=== PATIENT | female | born 1995 | race African-American/Black ===

== ENCOUNTER 2017-01-08 23:22 | Emergency (ER) | payer SELFPAY ==
[2017-01-09] MEDS ORDERED: LIDOCAINE 1% INJ-PF (10 MG/ML) 30 ML SDV INJ ONE (00:31)
[2017-01-09] MEDS ORDERED: CLINDAMYCIN HCL 150 MG CAPSULE PO ONE (00:54)
[2017-01-09] MEDS ORDERED: HYDROCODONE/ACETAMINOPHEN 5-325 MG (6 TAB/ER DISP) PO PRN (00:54)
--- NOTE | 2017-01-09 00:55 | ER Document Report ---
ED Oral Problem - General Chief Complaint: Mouth Problem Stated Complaint: MOUTH PAIN Time Seen by Provider: 01/09/17 00:09 Mode of Arrival: Ambulatory Information source: Patient Notes: 21-year-old female presented to ED for complaint of swelling not to the right wasted tooth for the last 3 days. She denies any cavities never had pain in this area before. She states these teeth just started coming in about a year ago and it feels like it is making all of her teeth removed. She states she has slight swelling to the right side of her face. TRAVEL OUTSIDE OF THE [place] IN LAST 30 DAYS: No - HPI Patient complains to provider of: Swelling of jaw, Toothache Onset: Other - 3 days Onset: Gradual Quality of pain: Achy, Sharp Severity: Moderate Pain Level: 4 Swollen jaw/face: Mild Associated symptoms: Jaw pain, Toothache Worsened by: Cold Relieved by: Nothing Similar symptoms previously: No Recently seen / treated by doctor/dentist: No - Related Data Allergies/Adverse Reactions: No Known Allergies Allergy (Verified 01/09/17 00:36) Past Medical History - General Information source: Patient - Social History Smoking Status: Never Smoker Cigarette use (# per day): No Chew tobacco use (# tins/day): No Smoking Education Provided: No Frequency of alcohol use: None Drug Abuse: None 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 denies: CAD, COPD, CVA, DM, Hyperlipidemia, Hypertension, Malignancy, Thyroid Disfunction Patient has suicidal ideation: No Patient has homicidal ideation: No - Past Medical History Cardiac Medical History: Reports: None Pulmonary Medical History: Reports: None EENT Medical History: Reports: None Neurological Medical History: Reports: None Endocrine Medical History: Reports: None Renal/ Medical History: Reports: None Malignancy Medical History: Reports: None GI Medical History: Reports: None Musculoskeltal Medical History: Reports None Skin Medical History: Reports None Psychiatric Medical History: Reports: None Traumatic Medical History: Reports: None Infectious Medical History: Reports: None Surgical Hx: Negative - Immunizations Immunizations up to date: Yes Hx Diphtheria, Pertussis, Tetanus Vaccination: Yes Review of Systems - Review of Systems Constitutional: No symptoms reported EENT: Mouth pain, Dental problem Cardiovascular: No symptoms reported Respiratory: No symptoms reported Gastrointestinal: No symptoms reported Genitourinary: No symptoms reported Female Genitourinary: No symptoms reported Musculoskeletal: No symptoms reported Skin: No symptoms reported Hematologic/Lymphatic: No symptoms reported Neurological/Psychological: No symptoms reported -: Yes All other systems reviewed and negative Physical Exam - Vital signs Vitals: Temp Pulse Resp BP Pulse Ox 98.4 F 83 18 120/71 95 01/08/17 23:41 01/08/17 23:41 01/08/17 23:41 01/08/17 23:41 01/08/17 23:41 Interpretation: Normal - General General appearance: Appears well, Alert - HEENT Head: Normocephalic, Atraumatic Eyes: Normal Pupils: PERRL Ears: Normal External canal: Normal Tympanic membrane: Normal Sinus: Normal Nasal: Normal Mouth/Lips: No: Caries Mucous membranes: Normal Teeth diagram: 1 - Small dental abscess Pharynx: Normal Neck: Normal - Respiratory Respiratory status: No respiratory distress Chest status: Nontender Breath sounds: Normal Chest palpation: Normal - Cardiovascular Rhythm: Regular Heart sounds: Normal auscultation Murmur: No - Abdominal Inspection: Normal Distension: No distension Bowel sounds: Normal Tenderness: Nontender Organomegaly: No organomegaly - Back Back: Normal, Nontender - Extremities General upper extremity: Normal inspection, Nontender, Normal color, Normal ROM , Normal temperature General lower extremity: Normal inspection, Nontender, Normal color, Normal ROM , Normal temperature, Normal weight bearing. No: Crystal's sign - Neurological Neuro grossly intact: Yes Cognition: Normal Orientation: AAOx4 Young Harris Coma Scale Eye Opening: Spontaneous Young Harris Coma Scale Verbal: Oriented [place] Coma Scale Motor: Obeys Commands Young Harris Coma Scale Total: 15 Speech: Normal Motor strength normal: LUE, RUE, LLE, RLE Sensory: Normal - Psychological Associated symptoms: Normal affect, Normal mood - Skin Skin Temperature: Warm Skin Moisture: Dry Skin Color: Normal Course - Re-evaluation Re-evalutation: 01/09/17 02:15 Small dental abscess I&D with an 18-gauge needle. Moderate amount of purulent fluid returned. Patient was given clindamycin in the emergency room and discharged home with prescription for clindamycin. Patient also given a Torrey dispense pack for the discomfort. - Vital Signs Vital signs: Temp Pulse Resp BP Pulse Ox 98.4 F 86 18 127/80 H 95 01/09/17 01:03 01/09/17 01:03 01/09/17 01:03 01/09/17 01:03 01/09/17 01:03 Procedures - Incision and Drainage Right tooth #1 abscess Type: Simple Anesthetic type: 1% Lidocaine mL's of anesthetic: 3 Blade size: Other Incision Method: Incision made with needle Amount/type of drainage: Moderate amount of purulent drainage Discharge - Discharge Clinical Impression: right dental abscess Condition: Stable Disposition: HOME, SELF-CARE Additional Instructions: TOOTHACHE: Your pain is due to dental decay. The tooth must be repaired in order for you to feel better. You will, therefore, be referred to a dentist. We do not have dentists on the staff at [facility]. Severe swelling or drainage around a tooth usually means a dental abscess. This also requires evaluation and treatment by the dentist, but antibiotics may be prescribed while awaiting dental treatment. You should be rechecked immediately if you develop major swelling of the face, increasing pain, a lump in the jaw or gums, headache, difficulty swallowing, or fever. ORAL NARCOTIC MEDICATION: You have been given a norco dispense pack for pain control. This medication is a narcotic. It's best taken with food, as nausea can result if taken on an empty stomach. Don't operate machinery or drive within six hours of taking this medication. Do not combine this medicine with alcohol, or with any medication which can cause sedation (such as cold tablets or sleeping pills) unless you get permission from the physician. Narcotics tend to cause constipation. If possible, drink plenty of fluids and eat a diet high in fiber and fruits. Please be aware that prescription narcotics also have the potential for abuse. People become addicted to these medications because of the general sense of wellbeing that they induce. This feeling along with a significant reduction in tension, anxiety, and aggression provides a stimulating seductive quality to these drugs. Once your pain is under control, we encourage you to discard your unused narcotics. CLINDAMYCIN: You have been given a prescription for the antibiotic clindamycin. It is often prescribed for infections in the mouth, such as dental infections or abscesses, and for skin infections due to MRSA. It's important that you take all the medication, unless instructed otherwise by your physician. Failure to complete the entire course can result in relapse of your condition. Common side effects of antibiotics include nausea, intestinal cramping, or diarrhea. Women may develop vaginal yeast infections, and babies can get yeast (thrush) in the mouth following the use of antibiotics. Contact your physician if you develop significant side effects from this medication. Allergy to this antibiotic can result in hives, wheezing, faintness, or itching. If symptoms of allergy occur, stop the medication and call the doctor. FOLLOW-UP CARE: You have been referred for follow-up care to the dentists listed below. Call the dentists office for an appointment as you were instructed or within the next two days. If you experience worsening or a significant change in your symptoms, notify the physician immediately or return to the Emergency Department at any time for re-evaluation. [facility] [address] [place], [place] Friday mornings, by appointment [facility] [address] [place] [address] [facility] [place] [address] [facility] [address] [facility] [address] [facility]'s [facility] [email or web address] [facility] [address] [place] [address] Friday- 8:00am to 5:00 pm Will see patients from other city hospital. Charges based on income and family size and accepts Medicare, Medicaid, and Insurances Will pull molars [facility] [address] Hours of Operation 8:00 am - 4:30 pm weekdays The following dental offices accept Medicaid: [facility] Dr. John Dr. Ceja Dr. Demarco Dr. Patel Rex Jacobs, Jose D, and Jass oral surgery Dr. Resendez ([place]) Dr. Gerardo ([place]) [facility] Drs. Davis ([place]) Dr. Arteaga ([place]) [facility] Dr. Ramesh ([place]) Drs. Hardwick and ([place]) Medicaid Care Line Prescriptions: Clindamycin HCl 300 mg PO Q8 #21 capsule Forms: Return to Work
[2017-01-09 01:03] VITALS: BP 127/80
== END 2017-01-09 01:07 | disposition home or self-care (01) ==
LOC: ER 23:22
PROC: 0H91XZZ Drainage of Face Skin, External Approach (ICD-10-PCS; principal; 2017-01-08)
DX: K04.7 Periapical abscess without sinus (principal); K08.89 Other specified disorders of teeth and supporting structures; R22.0 Localized swelling, mass and lump, head
CPT/HCPCS: 99282; 10060; J3490

== ENCOUNTER 2019-04-15 09:51 | Emergency (ER) | payer OTHER ==
[2019-04-15] MEDS ORDERED: ACETAMINOPHEN 325 MG TABLET PO ONE (10:12)
--- NOTE | 2019-04-15 10:14 | ER Document Report ---
ED Medical Screen (RME) - General Chief Complaint: Chest Pain Stated Complaint: CHEST PAIN Time Seen by Provider: 04/15/19 10:09 Mode of Arrival: Ambulatory Information source: Patient Notes: Patient presents complaining of chest pain that started last night. Patient states she feels as though weight is on her chest. Patient denies any cough or cold symptoms. Patient does complain of nausea. No vomiting. No fever. Patient is currently 12 weeks . I have greeted and performed a rapid initial assessment of this patient. A comprehensive ED assessment and evaluation of the patient, analysis of test results and completion of the medical decision making process will be conducted by additional ED providers. TRAVEL OUTSIDE OF THE [place] IN LAST 30 DAYS: No - Related Data Allergies/Adverse Reactions: No Known Allergies Allergy (Verified 01/09/17 00:36) Past Medical History - Social History Frequency of alcohol use: None Drug Abuse: None Renal/ Medical History: Denies: Hx Peritoneal Dialysis - Immunizations Immunizations up to date: Yes Hx Diphtheria, Pertussis, Tetanus Vaccination: Yes Physical Exam - Vital signs Vitals: Temp Pulse Resp BP Pulse Ox 97.8 F 71 12 113/73 98 04/15/19 10:06 04/15/19 10:06 04/15/19 10:06 04/15/19 10:06 04/15/19 10:06 - Respiratory Respiratory status: No respiratory distress Chest status: Tender Chest palpation: Tender - Cardiovascular Rhythm: Regular Heart sounds: S1 appreciated, S2 appreciated Course - Vital Signs Vital signs: Temp Pulse Resp BP Pulse Ox 97.8 F 71 12 113/73 98 04/15/19 10:06 04/15/19 10:06 04/15/19 10:06 04/15/19 10:06 04/15/19 10:06
--- NOTE | 2019-04-15 11:13 | RADIOLOGY REPORT (SQ) ---
EXAM DESCRIPTION: CHEST 2 VIEWS COMPLETED DATE/TIME: 04/15/2019 9:47 am REASON FOR STUDY: cp. 12 weeks gestation. Patient was shielded. COMPARISON: None. EXAM PARAMETERS: NUMBER OF VIEWS: two views TECHNIQUE: Digital Frontal and Lateral radiographic views of the chest acquired. RADIATION DOSE: NA LIMITATIONS: none FINDINGS: LUNGS AND PLEURA: No opacities, masses or pneumothorax. No pleural effusion. MEDIASTINUM AND HILAR STRUCTURES: No masses or contour abnormalities. HEART AND VASCULAR STRUCTURES: Heart normal size. No evidence for failure. BONES: No acute findings. HARDWARE: None in the chest. OTHER: No other significant finding. IMPRESSION: NO ACUTE RADIOGRAPHIC FINDING IN THE CHEST. TECHNICAL DOCUMENTATION: JOB ID: [id number] [employer]- All Rights Reserved Reading location - IP/workstation name: [email or web address]
--- NOTE | 2019-04-15 13:34 | ER Document Report ---
ED General - General Chief Complaint: Chest Pain Stated Complaint: CHEST PAIN Time Seen by Provider: 04/15/19 10:09 Mode of Arrival: Ambulatory Notes: 23-year-old female presents with chest pain that occurred last night. Patient describes it as upper chest pain and states it came on and was worse with deep breaths and movement of her torso. Patient denies any associated dyspnea, nausea, dizziness, syncope/near syncope. Patient states she is currently chest pain-free. Denies any cough or fever. Family history is positive for a grandmother with an FL in her late 60s. Patient denies any history of hypertension, diabetes, high cholesterol, long-term smoking. Patient is 12 weeks and is followed by women's clinic. Patient denies any related complaints, including vaginal bleeding/discharge, pelvic pain, abdominal pain, vomiting. TRAVEL OUTSIDE OF THE [place] IN LAST 30 DAYS: No - Related Data Allergies/Adverse Reactions: No Known Allergies Allergy (Verified 04/15/19 10:31) Past Medical History - General Information source: Patient - Social History Smoking Status: Never Smoker Frequency of alcohol use: None Drug Abuse: None Family History: Arthritis. denies: CAD, COPD, CVA, DM, Hyperlipidemia, Hypertension, Malignancy, Thyroid Disfunction Patient has suicidal ideation: No Patient has homicidal ideation: No Renal/ Medical History: Denies: Hx Peritoneal Dialysis - Immunizations Immunizations up to date: Yes Hx Diphtheria, Pertussis, Tetanus Vaccination: Yes Review of Systems - Review of Systems Notes: Constitutional: Negative for fever. HENT: Negative for sore throat. Eyes: Negative for visual changes. Cardiovascular: Positive for chest pain. Respiratory: Negative for shortness of breath. Gastrointestinal: Negative for abdominal pain, vomiting or diarrhea. Genitourinary: Negative for dysuria. Musculoskeletal: Negative for back pain. Skin: Negative for rash. Neurological: Negative for headaches, weakness or numbness. 10 point ROS negative except as marked above and in HPI. Physical Exam - Vital signs Vitals: Temp Pulse Resp BP Pulse Ox 97.8 F 71 12 113/73 98 04/15/19 10:06 04/15/19 10:06 04/15/19 10:06 04/15/19 10:06 04/15/19 10:06 - Notes Notes: GENERAL: Well-appearing, well-nourished and in no acute distress. HEAD: Atraumatic, normocephalic. EYES: Extraocular movements intact, sclera anicteric, conjunctiva are normal. NECK: Normal range of motion, supple without lymphadenopathy or JVD. LUNGS: Breath sounds clear to auscultation bilaterally and equal. No wheezes rales or rhonchi. HEART: Regular rate and rhythm without murmurs, rubs or gallops. EXTREMITIES: Normal range of motion, no pitting or edema. No clubbing or cyanosis. NEUROLOGICAL: Cranial nerves II through XII grossly intact. Normal speech, normal gait. PSYCH: Normal mood, normal affect. SKIN: Warm, Dry, normal turgor, no rashes or lesions noted. Course - Re-evaluation Re-evalutation: 04/15/19 23-year-old female presents for an episode of chest pain that occurred last night. Patient is chest pain free currently. Patient states it was worse with deep breaths and movement of her torso. Patient denied any associated dysp devendra nausea, syncope/near syncope, dizziness. Patient denies any related complaints. Patient is 12 weeks . Patient is non-hypoxic and non-tachycardic. Low clinical suspicion of ACS given clinical history, exam, and EKG without ST elevations. PE also seems unlikely given clinical history, absence of tachycardia or dyspnea. CXR without evidence of pneumothorax or pneumonia. No widened mediastinum. Aortic dissection also seems unlikely given history, symmetric pulses, CXR, and vitals. Patient given strict return precautions. Patient given close follow-up with PCP. Patient voices understanding and agrees with plan of care. - Vital Signs Vital signs: Temp Pulse Resp BP Pulse Ox 97.8 F 71 12 113/73 98 04/15/19 10:06 04/15/19 10:06 04/15/19 10:06 04/15/19 10:06 04/15/19 10:06 Discharge - Discharge Clinical Impression: Chest pain Qualifiers: Chest pain type: unspecified Qualified Code(s): R07.9 - Chest pain, unspecified Qualifiers: Weeks of gestation: 12 weeks Qualified Code(s): Z3A.12 - 12 weeks gestation of Condition: Stable Disposition: HOME, SELF-CARE Instructions: Chest Pain of Unclear Cause ([facility]) Additional Instructions: Your work-up was reassuring today. Please follow-up with your primary care doctor or 1 of the clinics listed in 3 to 5 days. Return to ER for any worsening symptoms, including worsening chest pain, shortness of breath, feeling like you are going to pass out, passing out, dizziness, nausea/vomiting, fever, coughing, or any other symptoms that are concerning to you. Referrals: THOM REAVES MD [ACTIVE STAFF] - Follow up in 3-5 days RUY ARRIOLA MD [EMERITUS] - Follow up in 3-5 days
[2019-04-15 13:54] VITALS: BP 114/56
--- NOTE | 2019-04-16 07:04 | EKG REPORT ---
SEVERITY:- NORMAL ECG - SINUS RHYTHM : Confirmed by: Albaro Capps MD 16-Apr-2019 07:03:28
== END 2019-04-15 14:03 | disposition home or self-care (01) ==
LOC: ER 09:51
DX: R07.9 Chest pain, unspecified (principal)
CPT/HCPCS: 71046; 93005; 93010; 99285

== ENCOUNTER 2019-07-28 20:28 | Outpatient (CLI) | payer OTHER, MEDICAID ==
[2019-07-28 21:29] LABS: APPEARANCE,URINE CLEAR; BILIRUBIN,URINE NEGATIVE (NEGATIVE); COLOR,URINE YELLOW; GLUCOSE, URINE NEGATIVE (NEGATIVE); KETONES,URINE NEGATIVE (NEGATIVE); LEUKOCYTE ESTERASE,URINE SMALL (NEGATIVE); NITRITE,URINE NEGATIVE (NEGATIVE); PROTEIN,URINE NEGATIVE (NEGATIVE); URINE SPECIFIC GRAVITY 1.015; UROBILINOGEN,URINE NEGATIVE mg/dL (<2.0)
[2019-07-28 21:33] LABS: RBCS (WET MOUNT) 4+ RBCS SEEN; T.VAGINALIS (WET MOUNT) NO TRICHOMONAS SEEN; YEAST (WET MOUNT) NO YEAST SEEN
[2019-07-28 21:36] LABS: BACTERIA (WET MOUNT) 3+ BACTERIA SEEN; EPITHELIALS (WET MOUNT) 3+ EPITHELIALS SEEN; WBCS (WET MOUNT) 3+ WBCS SEEN
[2019-07-28 21:47] LABS: URINE AMPHETAMINES SCREEN NEGATIVE; URINE BARBITURATES SCREEN NEGATIVE; URINE BENZODIAZEPINES SCREEN NEGATIVE; URINE COCAINE SCREEN NEGATIVE; URINE MARIJUANA (THC) SCREEN NEGATIVE; URINE METHADONE SCREEN NEGATIVE; URINE PHENCYCLIDINE SCREEN NEGATIVE
[2019-07-28 23:00] LABS: CHLAM PCR NOT DETECTED (NOT DETECT)
--- NOTE | 2019-07-28 23:21 | RADIOLOGY REPORT (SQ) ---
EXAM DESCRIPTION: Limited OB ultrasound CLINICAL HISTORY: 23 years Female; cervical length, presentation, fluid TECHNIQUE: Transabdominal obstetrical ultrasound was performed. COMPARISON: None. FINDINGS: Number of fetuses: Single position: Cephalic Amniotic fluid: 11.6 cm. Largest pocket 4.33 cm Cervix: Measures 3.3 cm in length. Close. Placenta: Posterior. Grade 1. No definite previa. HR: 162 bpm IMPRESSION: 1. Single living intrauterine in cephalic presentation. 2. Amniotic fluid volume is normal. Cervix is closed.
== END 2019-07-28 23:29 | disposition home or self-care (01) ==
LOC: LC 20:28
PROVIDERS: ATTEND Student in an Organized Health Care Education/Training Program
DX: O26.892 Other specified pregnancy related conditions, second trimester (principal); R10.9 Unspecified abdominal pain; Z3A.26 26 weeks gestation of pregnancy
CPT/HCPCS: 76815; 80307; 81001; 87086; 87210; 87491; 87591

== ENCOUNTER 2019-10-12 09:21 | Outpatient (CLI) | payer OTHER, MEDICAID ==
[2019-10-12 10:19] LABS: APPEARANCE,URINE SLIGHTLY-CLOUDY; BILIRUBIN,URINE NEGATIVE (NEGATIVE); COLOR,URINE YELLOW; GLUCOSE, URINE NEGATIVE (NEGATIVE); KETONES,URINE NEGATIVE (NEGATIVE); LEUKOCYTE ESTERASE,URINE LARGE (NEGATIVE); NITRITE,URINE NEGATIVE (NEGATIVE); PROTEIN,URINE NEGATIVE (NEGATIVE); URINE SPECIFIC GRAVITY 1.015; UROBILINOGEN,URINE NEGATIVE mg/dL (<2.0)
--- NOTE | 2019-10-12 10:44 | Non Stress Test Report ---
Non Stress Test Datetime Report Generated by CPN: 10/12/2019 10:43 DEMOGRAPHIC Test Number: 1 EGA NST: 37.5 INDICATION Indication for Study (NST) Other: ordered by provider LC VITAL SIGNS Temperature - NST: 99.2 Pulse - NST: 85 RESP - NST: 16 NBPSYS NST: 119 NBPDIA NST: 59 MONITORING Time on Monitor: 10/12/2019 09:43 Time off Monitor: 10/12/2019 10:42 NST Duration: 59 NST INTERVENTIONS NST Interventions: PO Hydration; Reposition Patient Physician Notified NST: Dr Alvarado BABY A: [id number] BABY A Movement : Present Contraction Frequency : 0 FHR Baseline : 125 Accelerations : 15X15 Decelerations : None Variability : Moderate 6-25bpm NST Review: Meets Criteria for Reactive NST NST Review and Verified By : LATRICIA Moser NST Results: Reactive NST REPORT Report Trigger: Send Report
[2019-10-12 10:56] LABS: URINE AMPHETAMINES SCREEN NEGATIVE; URINE BARBITURATES SCREEN NEGATIVE; URINE BENZODIAZEPINES SCREEN NEGATIVE; URINE COCAINE SCREEN NEGATIVE; URINE MARIJUANA (THC) SCREEN NEGATIVE; URINE METHADONE SCREEN NEGATIVE; URINE PHENCYCLIDINE SCREEN NEGATIVE
== END 2019-10-12 10:55 | disposition home or self-care (01) ==
LOC: LC 09:21
PROVIDERS: ATTEND Obstetrics & Gynecology
DX: Z36.89 Encounter for other specified antenatal screening (principal); Z3A.37 37 weeks gestation of pregnancy
CPT/HCPCS: 80307; 81005; 84112

== ENCOUNTER 2019-10-28 04:18 | Inpatient (IN) | payer MEDICAID ==
[2019-10-28 05:06] LABS: APPEARANCE,URINE CLOUDY; BILIRUBIN,URINE NEGATIVE (NEGATIVE); COLOR,URINE RED; GLUCOSE, URINE NEGATIVE (NEGATIVE); KETONES,URINE NEGATIVE (NEGATIVE); LEUKOCYTE ESTERASE,URINE SMALL (NEGATIVE); NITRITE,URINE NEGATIVE (NEGATIVE); PROTEIN,URINE 100 mg/dL (NEGATIVE); URINE SPECIFIC GRAVITY 1.016; UROBILINOGEN,URINE NEGATIVE mg/dL (<2.0)
[2019-10-28] MEDS ORDERED: PROMETHAZINE HCL INJ 25 MG/1 ML VIAL IV ONE (05:41)
[2019-10-28] MEDS ORDERED: NALBUPHINE HCL INJ 10 MG/1 ML AMPULE INJ ONE (05:41)
[2019-10-28] MEDS ORDERED: RINGERS SOLUTION,LACTATED 1,000 ML IV PRN (05:42)
[2019-10-28] MEDS ORDERED: PROMETHAZINE HCL INJ 25 MG/1 ML VIAL ONE (05:44)
[2019-10-28] MEDS ORDERED: NALBUPHINE HCL INJ 10 MG/1 ML AMPULE ONE ×2 (05:44→09:47)
[2019-10-28 06:03] LABS: ABSOLUTE LYMPHOCYTES (AUTO) 1.7 10^3/uL (0.5-4.7); ABSOLUTE MONOCYTES (AUTO) 0.8 10^3/uL (0.1-1.4); ABSOLUTE NEUT (AUTO) 6.8 10^3/uL (1.7-8.2); BASOPHILS % (AUTO) 0.4 % (0-2); EOSINOPHILS % (AUTO) 0.3 % (0-6); HEMOGLOBIN 13.5 g/dL (12.0-15.5); LYMPHOCYTES % (AUTO) 18.3 % (13-45); MEAN CORPUSCULAR HEMOGLOBIN 30.3 pg (27.0-33.4); MEAN CORPUSCULAR HGB CONC 34.6 g/dL (32.0-36.0); MEAN CORPUSCULAR VOLUME 88 fl (80-97); MONOCYTES % (AUTO) 8.3 % (3-13); PLATELET COUNT 186 10^3/uL (150-450); RED BLOOD COUNT 4.45 10^6/uL (3.72-5.28); RED CELL DISTRIBUTION WIDTH 13.6 % (11.5-14.0); SEGMENTED NEUTROPHILS % (AUTO) 72.7 % (42-78); TOTAL CELLS COUNTED % (AUTO) 100 %; WHITE BLOOD COUNT 9.3 10^3/uL (4.0-10.5)
--- NOTE | 2019-10-28 06:32 | Admission Physical ---
Datetime Report Generated by CPN: 10/28/2019 06:31 CURRENT ADMISSION Chief Complaint: Uterine Contractions; Suspected Ruptured Membranes Indication for Induction: Not Applicable Admit Impression : Term, Intrauterine ; Ruptured Membranes Admit Plan: Admit to Unit ALLERGIES Medication Allergies: No Medication Allergies: No Known Allergies (10/28/2019) Latex: No Latex Allergies OBSTETRICAL HISTORY EDC: 10/28/2019 00:00 : 1 Para: 0 (Annotations: Data stored by [facility] on behalf of user) Term: 0 : 0 SAB: 0 IAB: 0 Ectopic: 0 Livin Cesareans: 0 VBACs: 0 Multiple Births: 0 Gestational Diabetes: No Rh Sensitization: No Incompetent Cervix: No MADELEINE: No Infertility: No ART Treatment: No Uterine Anomaly: No IUGR: No Hx Previous C/S: No Macrosomia: No Hx Loss/Stillborn: No PIH: No Hx : No Placenta Previa/Abruption: No Depression/PP Depression: No PTL/PROM: No Post Hemorrhage: No Obstetrical History Comments: 2019 SEE RECORDS Alcohol: No Marijuana : No Cocaine: No Other Illicit Drugs: No Cigarettes: Never Smoker. 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 Heart Disease: No Hosp/Surgery: No Autoimmune Disorder: No Anesthetic Complications: No Kidney Disease: No Abnormal Pap Smear: No Neuro/Epilepsy: No Psychiatric Disorders: No Other Medical Diseases: No Hepatitis/Liver Disease: No Significant Family History: No Varicosities/Phlebitis: No Trauma/Violence : No Thyroid Dysfunction: No INFECTIOUS HISTORY Gonorrhea: No Genital Herpes: No Chlamydia: No Tuberculosis: No Syphilis: No Hepatitis: No HIV/AIDS Exposure: No Rash or Viral Illness: No HPV: No PHYSICAL EXAM General: Normal HEENT: Normal Neurologic: Normal Thyroid: Normal Heart: Normal Lungs: Normal Breast: Deferred Back: Normal Abdomen: Normal Genitourinary Exam: Normal Extremities: Normal DTRs: Normal Pelvic Type: Adequate Vital Signs: Reviewed VAGINAL EXAM Dilatation: 3 Effacement: 90 Station: -1 MEMBRANES Membranes: Ruptured FETUS A EGA: 40.0 Monitoring: External US FHR- Baseline: 120 Variability: Moderate 6-25bpm Decelerations: None FHR Category: Category I Presentation: Vertex Admit Comment: Admit for labor. EFW is 6.5 lbs PLANS FOR LABOR AND DELIVERY Labor and Delivery: None Pain Management: Medications Feeding Preference: Breast Benefit of Breast Feed Discussed: Yes Circumcision: N/A INFORMED CONSENT Signature: with User ID: [email or web address]
[2019-10-28] MEDS ORDERED: OXYTOCIN/0.9 % SODIUM CHLORIDE 30 UNIT/500 ML RTUINJ IV PRN ×2 (07:50→10:22)
--- NOTE | 2019-10-28 09:01 | L&D Progress Notes ---
PROGRESS NOTES Datetime Report Generated by CPN: 10/28/2019 09:01 PROGRESS NOTE Comment: breathing with uc's, now 6cm, Cat 1 strip, irreg uc's, undecided about epidural, Dr. Zavala on unit and aware of POC, discussed POC with mom and pt VAGINAL EXAM Dilatation: 3 Effacement: 90 Station: -1 LAST VAGINAL EXAM-NURSING Nursing Exam Dilitation: 6.0 Nursing Exam Effacement: 90 Nursing Exam Station: -1 MEMBRANES Membranes: Ruptured FETUS A : 40.0 Presentation: Vertex SIGNATURE SIGNATURE: [id number];[id number];[id number] Assignment: Darci Zavala MD Signature: with User ID: [email or web address] : with User ID: [email or web address]
[2019-10-28] MEDS ORDERED: OXYTOCIN 10 UNIT/ML VIAL ONE (09:04)
[2019-10-28] MEDS ORDERED: OXYTOCIN/0.9 % SODIUM CHLORIDE 30 UNIT/500 ML RTUINJ ONE (09:04)
[2019-10-28] MEDS ORDERED: MISOPROSTOL 0.2 MG TABLET ONE (09:04)
[2019-10-28] MEDS ORDERED: LIDOCAINE 1% INJ-PF (10 MG/ML) 30 ML SDV ONE (09:04)
[2019-10-28] MEDS ORDERED: MISOPROSTOL 0.2 MG TABLET PR ONE (10:22)
[2019-10-28] MEDS ORDERED: BENZOCAINE/MENTHOL AEROSOL SPRAY 56 ML TOP PRN (10:22)
[2019-10-28] MEDS ORDERED: DIPHENHYDRAMINE HCL 25 MG CAPSULE PO PRN (10:22)
[2019-10-28] MEDS ORDERED: PROMETHAZINE HCL 25 MG TABLET PO PRN (10:22)
[2019-10-28] MEDS ORDERED: PROMETHAZINE HCL 25 MG SUPP.RECT PR PRN (10:22)
[2019-10-28] MEDS ORDERED: ACETAMINOPHEN WITH CODEINE #3 TABLET PO PRN (10:22)
[2019-10-28] MEDS ORDERED: ACETAMINOPHEN 650 MG SUPP.RECT PR PRN (10:22)
[2019-10-28] MEDS ORDERED: DIBUCAINE 1% OINTMENT 28 GM TP PRN (10:22)
[2019-10-28] MEDS ORDERED: DIPH/PERTUSS(ACELL)/TETANUS VAC/PF 0.5 ML SYR (>=10YO) IM PRN (10:22)
[2019-10-28] MEDS ORDERED: NA PHOS,M-B/NA PHOS,DI-BA (ADULT) 133 ML ENEMA PR PRN (10:22)
[2019-10-28] MEDS ORDERED: PSEUDOEPHEDRINE HCL 30 MG TABLET PO PRN (10:22)
[2019-10-28] MEDS ORDERED: MAGNESIUM HYDROXIDE SUSP 30 ML UDCUP PO PRN (10:22)
[2019-10-28] MEDS ORDERED: MEASLES,MUMPS&RUBELLA VACC/PF 0.5 ML VIAL SUBCUT PRN (10:22)
[2019-10-28] MEDS ORDERED: GLYCERIN/WITCH HAZEL LEAF 1 EACH MED..WIPE TP PRN (10:22)
[2019-10-28 10:27] LABS: URINE AMPHETAMINES SCREEN NEGATIVE; URINE BARBITURATES SCREEN NEGATIVE; URINE BENZODIAZEPINES SCREEN NEGATIVE; URINE COCAINE SCREEN NEGATIVE; URINE MARIJUANA (THC) SCREEN NEGATIVE; URINE METHADONE SCREEN NEGATIVE; URINE PHENCYCLIDINE SCREEN NEGATIVE
[2019-10-28] MEDS ORDERED: NALBUPHINE HCL INJ 10 MG/1 ML AMPULE IV ONE (10:27)
--- NOTE | 2019-10-28 10:59 | Delivery Summary ---
Del Sum A-C Datetime Report Generated by CPN: 10/28/2019 10:59 DELIVERY PERSONNEL DELIVERY PERSONNEL: [id number] Delivery Doctor:: Darci Zavala MD Nurse Jboss Architect Certified:: Latonia Gao CNM Labor and Delivery Nurse:: Barbara Bhandari RNvp care management Nurse:: Cassidy Dietz RN Nursery Nurse:: Daya Downs RN Nursery Nurse:: Suzanne Reyez RN [employer] Ass[employer]ants [employer] Sales[employer]/BOAT PILOT: Julianna Macdonald CNA II MATERNAL INFORMATION Delivery Anesthesia: None Medications After Delivery: Pitocin Bolus-Please Comment; Pitocin 30 Units in 500ml NS/D5W; Cytotec 1000mcg Per Rectum/Vagina Meds After Delivery Comment: 30 units Pitocin in 500mL NS, 200 mLs open bolus then 300mLs at 95mLs/hr; 1000mcg Cytotec NM Delivery QBL: 100 Maternal Complications: None Provider Comments: pt progressed to complete, started pushing, had a bradycardia, Dr. Zavala called and Vac applied x 1 pull, delivered female , OA to GRECIA, pt not pushing effectively, going back up in bed, baby placed on mothers abd cord clamped and cut by GM and given to nursery nurse for stimulation, Nubain 10mg given for repair, lacerations repaired with 2-0 chromic without difficulty, FFFM, uterine atony, massage, Pitocin and cytotec 1000mcg via rectum. spont delivery of placenta, small Baby and mom remain in recovery in stable condition LABOR SUMMARY [facility]: 10/28/2019 00:00 No. Babies in Womb: 1 Labor Anesthesia: IV Sedation LABOR INFORMATION Reason for Induction: Not Applicable Onset of Labor: 10/28/2019 08:41 Complete Dilatation: 10/28/2019 09:28 Oxytocin: N/A Group B Beta Strep: Negative Steroids Given: None Reason Steroids Not Administered: Not Applicable MEMBRANES Membranes Rupture Method: Spontaneous Rupture of Membranes: 10/28/2019 04:00 Length of Rupture (hr): 5.68 Amniotic Fluid Color: Clear Amniotic Fluid Amount: Scant Amniotic Fluid Odor: Normal STAGES OF LABOR Stage 1 hr: 0 Stage 1 min: 47 Stage 2 hr: 0 Stage 2 min: 13 Stage 3 hr: 0 Stage 3 min: 5 Total Time in Labor hr: 1 Total Time in Labor min: 5 VAGINAL DELIVERY Episiotomy: None Laceration #1: Periurethral Laceration Extension #1: First Degree Laceration Repair: Yes Laceration Repair Note: left labial 1st degree 2-0 chromic using 1 % Lidocaine Sponge Count Correct: Yes Sharps Count Correct: Yes CSECTION DELIVERY Primary Indication: N/A Secondary Indication: N/A CSection Incidence: N/A Labor: N/A Elective: N/A CSection Incision: N/A BABY A INFORMATION Infant Delivery Date/Time: 10/28/2019 09:41 Method of Delivery: Vaginal Nurse Controlled Delivery: No Born in Route : No : N/A Forceps: N/A Vacuum Extraction: Successful Shoulder Dystocia : No ASSISTED DELIVERY BABY A Indication for Assisted Delivery: prolonged decelerations Catheter Prior to Procedure: No Station Vacuum/Forcep Apply: vacuum Position Vacuum/Forcep Apply: Left Occipital Anterior Vacuum Number of Pulls: 1 Vacuum Number of PopOffs: 0 Vacuum Maximum Pressure Obtained: 600 Vacuum Diamond Powder Technician: [place] Total Time Vacuum Applied: 60 seconds PRESENTATION/POSITION BABY A Presentation: Cephalic Cephalic Presentation: Vertex Vertex Position: Left Occipital Anterior Breech Presentation: N/A PLACENTA INFORMATION BABY A Placenta Delivery Time : 10/28/2019 09:46 Placenta Method of Delivery: Spontaneous Placenta Status: Delivered SCORES BABY A Heart Rate 1 min: >100 bpm Resp Effort 1 min: Slow, Irregular Reflex Irritability 1 min: Cough or Sneeze or Pulls Away Muscle Tone 1 min: Active Motion Color 1 min: Blue/Pale Resuscitation Effort 1 min: Tactile Stimulation SCORE 1 MIN: 7 Heart Rate 5 min: >100 bpm Resp Effort 5 min: Good Cry Reflex Irritability 5 min: Cough or Sneeze or Pulls Away Muscle Tone 5 min: Active Motion Color 5 min: Body [place], Extremities Blue Resuscitation Effort 5 min: N/A SCORE 5 MIN: 9 INFORMATION BABY A Gestational Age at Delivery: 40.0 Gestational Status: Full Term- 39- 40.6 Weeks Infant Outcome : Liveborn Condition : Stable Sex: Female IDENTIFICATION BABY A Verification Date/Time: 10/28/2019 10:08 ID Band Number: [id number] Mother's Name Verified: Yes RN Verifying : Angela Bhandari LATRICIA Additional Verifying Personnel: Lily Macdonald CNA II WEIGHT/LENGTH BABY A Birthweight (gm): 2945 Infant Weight (lb): 6 Weight (oz): 8 Infant Length (in): 20.00 Infant Length (cm): 50.80 CORD INFORMATION BABY A No. Cord Vessels: 3 Nuchal Cord : N/A Cord Blood Taken: Yes-For Eval (Mom's Blood Type - or O+) Infant Suction: Mouth; Nose ASSESSMENT BABY A Skin to Skin: Yes Skin to Skin Time (min): 15 BABY B INFORMATION : N/A SIGNATURES Signature: with User ID: Adriane
[2019-10-28] MEDS: IBUPROFEN 800 MG TABLET PO SCH ×2 (15:33→22:40)
[2019-10-28] MEDS: FERROUS SULFATE 325 MG TABLET PO SCH (18:08)
[2019-10-28] MEDS: DOCUSATE SODIUM 100 MG CAPSULE PO SCH (18:08)
[2019-10-28] MEDS: FAMOTIDINE 20 MG TABLET PO SCH (22:40)
[2019-10-29] MEDS: IBUPROFEN 800 MG TABLET PO SCH ×3 (05:21→22:32)
[2019-10-29 07:38] LABS: HEMATOCRIT 32.2 % (36.0-47.0); MEAN CORPUSCULAR HEMOGLOBIN 30.3 pg (27.0-33.4); MEAN CORPUSCULAR HGB CONC 34.3 g/dL (32.0-36.0); MEAN CORPUSCULAR VOLUME 89 fl (80-97); PLATELET COUNT 163 10^3/uL (150-450); RED BLOOD COUNT 3.64 10^6/uL (3.72-5.28); RED CELL DISTRIBUTION WIDTH 13.8 % (11.5-14.0); WHITE BLOOD COUNT 11.5 10^3/uL (4.0-10.5)
[2019-10-29] MEDS: DOCUSATE SODIUM 100 MG CAPSULE PO SCH ×2 (10:33→17:49)
[2019-10-29] MEDS: PRENATAL VITAMIN W DHA CAPSULE PO SCH (10:34)
[2019-10-29] MEDS: FERROUS SULFATE 325 MG TABLET PO SCH ×2 (10:34→17:49)
[2019-10-29] MEDS: SENNOSIDES/DOCUSATE 8.6-50 MG 1 EACH TABLET PO SCH (10:34)
[2019-10-29] MEDS: FAMOTIDINE 20 MG TABLET PO SCH ×2 (10:36→22:32)
--- NOTE | 2019-10-29 11:01 | PDOC PROGRESS REPORT ---
Subjective-OB Progress Note for:: 10/29/19 - PP day #1, doing well, uob, voiding, , O+, Rubella immune Physical Exam (OB) Vital Signs: Temp Pulse Resp BP Pulse Ox 97.9 F 73 17 126/76 H 100 10/29/19 08:00 10/29/19 08:00 10/29/19 08:00 10/29/19 08:00 10/29/19 08:00 Intake & Output 10/28/19 10/29/19 10/30/19 06:59 06:59 06:59 Intake Total 500 Balance 500 Weight 101.1 kg - General General Appearance: Appears well, Alert In distress: None - Lochia Lochia Amount: Small 10-25 ml Lochia Color: Rubra/Red - Abdomen Description: Soft, Round Hernia Present: No Fundal Description: Firm, Midline Fundal Height: u/u - u/2 - Respiratory Respiratory Status: No respiratory distress - Abdominal Distension: No distension Tenderness: Nontender - Genitourinary Genitourinary Note: voiding - Extremities Upper extremity: Normal inspection Lower extremities: Normal inspection - Neurological Cognition: Normal Orientation: AAOx4 - Psychological Associated symptoms: Normal affect, Normal mood Objective-Diagnostic Laboratory: 10/29/19 06:43 10/29/19 06:43 WBC 11.5 H RBC 3.64 L Hgb 11.0 L D Hct 32.2 L MCV 89 MCH 30.3 MCHC 34.3 RDW 13.8 Plt Count 163 Assessment and Plan(PN) - Assessment and Plan (1) Vaginal delivery Is this a current diagnosis for this admission?: Yes (2) Failed vacuum extraction, delivered, current hospitalization Is this a current diagnosis for this admission?: Yes (3) bradycardia affecting management of mother, delivered Is this a current diagnosis for this admission?: Yes Plan: routine PP orders, ambulation encouraged - Time Spent with Patient Time with patient: Less than 15 minutes Medications reviewed and adjusted accordingly: Yes - Disposition Anticipated Discharge Disposition: Home, Self Care Anticipated Discharge Timeframe: within 24 hours
[2019-10-30] MEDS: IBUPROFEN 800 MG TABLET PO SCH (06:04)
--- NOTE | 2019-10-30 10:33 | PDOC DISCHARGE SUMMARY ---
Impression - Admit/DC Date/PCP Admission Date/Primary Care Provider: 10/28/19 05:07 MARILIN GALE MD Discharge Date: 10/30/19 - PP day #2, doing well, , no complaints - Discharge Diagnosis (1) Vaginal delivery Is this a current diagnosis for this admission?: Yes (2) Failed vacuum extraction, delivered, current hospitalization Is this a current diagnosis for this admission?: Yes (3) bradycardia affecting management of mother, delivered Is this a current diagnosis for this admission?: Yes - Additional Information Resuscitation Status: Full Code Discharge Diet: As Tolerated, Regular Discharge Activity: Activity As Tolerated, No Lifting Over 10 Pounds, Pelvic Rest Referrals: MARILIN GALE MD [Primary Care Provider] - Prescriptions: Ibuprofen [Motrin 800 mg Tablet] 800 mg PO Q8 #60 tablet Home Medications: Prenat 115/Iron Fum/Folic/Dss [ 19 Tablet] 1 tab PO DAILY 07/28/19 Ibuprofen [Motrin 800 mg Tablet] 800 mg PO Q8 #60 tablet 10/30/19 HPI Reason(s) for Admission: Onset of Labor Intrapartum Procedure(s): Vacuum Extraction Complication(s): Laceration-Labial Laceration-Degree: 1st Hospital Course Hospital Course: normal PP course Results Laboratory Results: WBC 11.5 10^3/uL (4.0-10.5) H 10/29/19 06:43 RBC 3.64 10^6/uL (3.72-5.28) L 10/29/19 06:43 Hgb 11.0 g/dL (12.0-15.5) L D 10/29/19 06:43 Hct 32.2 % (36.0-47.0) L 10/29/19 06:43 MCV 89 fl (80-97) 10/29/19 06:43 MCH 30.3 pg (27.0-33.4) 10/29/19 06:43 MCHC 34.3 g/dL (32.0-36.0) 10/29/19 06:43 RDW 13.8 % (11.5-14.0) 10/29/19 06:43 Plt Count 163 10^3/uL (150-450) 10/29/19 06:43 Lymph % (Auto) 18.3 % (13-45) 10/28/19 05:53 [place] % (Auto) 8.3 % (3-13) 10/28/19 05:53 Eos % (Auto) 0.3 % (0-6) 10/28/19 05:53 Baso % (Auto) 0.4 % (0-2) 10/28/19 05:53 Absolute Neuts (auto) 6.8 10^3/uL (1.7-8.2) 10/28/19 05:53 Absolute Lymphs (auto) 1.7 10^3/uL (0.5-4.7) 10/28/19 05:53 Absolute Monos (auto) 0.8 10^3/uL (0.1-1.4) 10/28/19 05:53 Absolute Eos (auto) 0.0 10^3/uL (0.0-0.6) 10/28/19 05:53 Absolute Basos (auto) 0.0 10^3/uL (0.0-0.2) 10/28/19 05:53 Seg Neutrophils % 72.7 % (42-78) 10/28/19 05:53 Urine Color RED 10/28/19 04:26 Urine Appearance CLOUDY 10/28/19 04:26 Urine pH 6.0 (5.0-9.0) 10/28/19 04:26 Ur Specific Eva 1.016 10/28/19 04:26 Urine Protein 100 mg/dL (NEGATIVE) H 10/28/19 04:26 Urine Glucose (UA) NEGATIVE mg/dL (NEGATIVE) 10/28/19 04:26 Urine Ketones NEGATIVE mg/dL (NEGATIVE) 10/28/19 04:26 Urine Blood LARGE (NEGATIVE) H 10/28/19 04:26 Urine Nitrite NEGATIVE (NEGATIVE) 10/28/19 04:26 Urine Bilirubin NEGATIVE (NEGATIVE) 10/28/19 04:26 Urine Urobilinogen NEGATIVE mg/dL (<2.0) 10/28/19 04:26 Ur Leukocyte Esterase SMALL (NEGATIVE) H 10/28/19 04:26 Urine Ascorbic Acid NEGATIVE (NEGATIVE) 10/28/19 04:26 Membranes Rupture POSITIVE (NEGATIVE) H 10/28/19 04:30 Urine Opiates Screen NEGATIVE 10/28/19 08:45 Urine Methadone Screen NEGATIVE 10/28/19 08:45 Ur Barbiturates Screen NEGATIVE 10/28/19 08:45 Ur Phencyclidine Scrn NEGATIVE 10/28/19 08:45 Ur Amphetamines Screen NEGATIVE 10/28/19 08:45 U Benzodiazepines Scrn NEGATIVE 10/28/19 08:45 Urine Cocaine Screen NEGATIVE 10/28/19 08:45 U Marijuana (THC) Screen NEGATIVE 10/28/19 08:45 RPR NONREACTIVE (NONREACTIVE) 10/28/19 05:53 Blood Type O POSITIVE 10/28/19 05:53 Antibody Screen NEGATIVE 10/28/19 05:53 Plan Plan of Treatment: d/c home, f-up with [facility] in 4 wks for PP check Time Spent: Less than 30 Minutes
[2019-10-30] MEDS: FERROUS SULFATE 325 MG TABLET PO SCH (10:49)
[2019-10-30] MEDS: FAMOTIDINE 20 MG TABLET PO SCH (10:49)
[2019-10-30] MEDS: DOCUSATE SODIUM 100 MG CAPSULE PO SCH (10:49)
[2019-10-30] MEDS: SENNOSIDES/DOCUSATE 8.6-50 MG 1 EACH TABLET PO SCH (10:49)
[2019-10-30] MEDS: PRENATAL VITAMIN W DHA CAPSULE PO SCH (10:49)
[2019-10-30 11:06] VITALS: BP 126/76
== END 2019-10-30 13:15 | disposition home or self-care (01) | DRG 807 ==
LOC: LC 04:18 → LR 05:07 → 2S 11:58
PROVIDERS: ADMIT Obstetrics & Gynecology; ATTEND Obstetrics & Gynecology Gynecology
PROC: 10D07Z6 Extraction of Products of Conception, Vacuum, Via Natural or Artificial Opening (ICD-10-PCS; principal; 2019-10-28)
PROC: 0HQ9XZZ Repair Perineum Skin, External Approach (ICD-10-PCS; 2019-10-28)
PROC: 3E0234Z Introduction of Serum, Toxoid and Vaccine into Muscle, Percutaneous Approach (ICD-10-PCS; 2019-10-30)
DX: O76 Abnormality in fetal heart rate and rhythm complicating labor and delivery (principal); Z37.0 Single live birth; O70.0 First degree perineal laceration during delivery; O62.2 Other uterine inertia; Z3A.40 40 weeks gestation of pregnancy; Z23 Encounter for immunization
CPT/HCPCS: 36415; 80307; 81005; 84112; 85025; 85027; 86592; 86850; 86900; 86901; 90715; C1758; J2300; J2550; J2590; J3490

== ENCOUNTER 2020-02-12 16:35 | Emergency (ER) | payer MEDICAID ==
--- NOTE | 2020-02-12 18:14 | ER Document Report ---
ED General - General Chief Complaint: Nasal Congestion Stated Complaint: CONGESTION Time Seen by Provider: 02/12/20 17:07 Primary Care Provider: MARILIN GALE MD [Primary Care Provider] - Follow up as needed TRAVEL OUTSIDE OF THE [place] IN LAST 30 DAYS: No - HPI Notes: Patient is a 24 y/o female with no medical hx who presents with nasal congestion and sore throat for past two days. She has been taking Zicam with relief. She denies chest pain, shortness of breath, cough, headache, fever, nausea, vomiting or diarrhea. She would like to be tested for COVID as she has a 3 month old baby at home. She denies any sick contacts or possible COVID expsorures. - Related Data Allergies/Adverse Reactions: No Known Allergies Allergy (Verified 02/12/20 17:06) Past Medical History - General Information source: Patient - Social History Smoking Status: Current Every Day Smoker Drug Abuse: Marijuana Family History: Arthritis. denies: CAD, COPD, CVA, DM, Hyperlipidemia, Hypert ension, Malignancy, Thyroid Disfunction Renal/ Medical History: Denies: Hx Peritoneal Dialysis - Immunizations Immunizations up to date: Yes Hx Diphtheria, Pertussis, Tetanus Vaccination: Yes Review of Systems - Review of Systems Constitutional: No symptoms reported EENT: See HPI Cardiovascular: No symptoms reported Respiratory: No symptoms reported Gastrointestinal: No symptoms reported Genitourinary: No symptoms reported Female Genitourinary: No symptoms reported Musculoskeletal: No symptoms reported Skin: No symptoms reported Hematologic/Lymphatic: No symptoms reported Neurological/Psychological: No symptoms reported Physical Exam - Vital signs Vitals: Temp Pulse Resp BP Pulse Ox 98.4 F 107 H 16 128/72 H 100 02/12/20 16:47 02/12/20 16:47 02/12/20 16:47 02/12/20 16:47 02/12/20 16:47 - Notes Notes: PHYSICAL EXAMINATION: VITALS: Vitals reviewed and within normal limits. GENERAL: Well-appearing, well-nourished and in no acute distress. HEAD: Atraumatic, normocephalic. ENT: Nares patent. Moist mucous membranes. Oropharynx clear without exudates. LUNGS: Breath sounds clear to auscultation bilaterally and equal. No wheezes, rales, or rhonchi. HEART: Regular, rate, and rhythm without murmurs. ABDOMEN: Soft, nontender, normoactive bowel sounds. No guarding, no rebound. No masses appreciated. SKIN: Warm, Dry, normal turgor, no rashes or lesions noted. Course - Re-evaluation Re-evalutation: Patient is a 24 y/o female with no medical hx who presents with nasal congestion and sore throat for past two days. Patient is mildly tachycardic with a heart rate of 106 but is afebrile and vital signs otherwise unremarkable. On exam, oropharynx is clear with no erythema or exudates. Rapid flu and strep both negative. Covid testing is currently pending. Patient will be discharged home with instructions to quarantine until she is informed of her Covid results. Return precautions and follow-up instructions given. Patient understands and is in agreement with the plan. - Vital Signs Vital signs: Temp Pulse Resp BP Pulse Ox 98.4 F 107 H 16 128/72 H 100 02/12/20 16:47 02/12/20 16:47 02/12/20 16:47 02/12/20 16:47 02/12/20 16:47 Discharge - Discharge Clinical Impression: Nasal congestion, Sore throat Condition: Stable Disposition: HOME, SELF-CARE Instructions: COVID-19 Guidance for Persons Under Investigation, Sore Throat ([facility]) Forms: Return to Work Referrals: MARILIN GALE MD [Primary Care Provider] - Follow up as needed
[2020-02-12 21:19] LABS: A TYPE INFLUENZA AG NEGATIVE (NEGATIVE); B INFLUENZA AG NEGATIVE (NEGATIVE)
[2020-02-12 21:58] VITALS: BP 120/78
== END 2020-02-12 22:00 | disposition home or self-care (01) ==
LOC: ER 16:35
DX: U07.1 COVID-19 (principal); J02.9 Acute pharyngitis, unspecified; R09.81 Nasal congestion; F17.200 Nicotine dependence, unspecified, uncomplicated
CPT/HCPCS: 99282; 87070; 87880; 87635; 87804; C9803

== ENCOUNTER 2020-04-03 06:18 | Emergency (ER) | payer MEDICAID, OTHER ==
[2020-04-03 06:25] VITALS: BP 127/77
[2020-04-03 06:57] LABS: ABSOLUTE EOSINOPHILS # (AUTO) 0.1 10^3/uL (0.0-0.6); ABSOLUTE LYMPHOCYTES (AUTO) 2.3 10^3/uL (0.5-4.7); ABSOLUTE MONOCYTES (AUTO) 0.4 10^3/uL (0.1-1.4); ABSOLUTE NEUT (AUTO) 3.3 10^3/uL (1.7-8.2); BASOPHILS % (AUTO) 0.7 % (0-2); HEMATOCRIT 39.3 % (36.0-47.0); HEMOGLOBIN 13.1 g/dL (12.0-15.5); LYMPHOCYTES % (AUTO) 37.2 % (13-45); MEAN CORPUSCULAR HGB CONC 33.3 g/dL (32.0-36.0); MEAN CORPUSCULAR VOLUME 84 fl (80-97); MONOCYTES % (AUTO) 7.1 % (3-13); PLATELET COUNT 290 10^3/uL (150-450); RED BLOOD COUNT 4.68 10^6/uL (3.72-5.28); RED CELL DISTRIBUTION WIDTH 13.3 % (11.5-14.0); TOTAL CELLS COUNTED % (AUTO) 100 %; WHITE BLOOD COUNT 6.2 10^3/uL (4.0-10.5)
[2020-04-03 07:23] LABS: ALBUMIN 3.8 g/dL (3.5-5.0); ALKALINE PHOSPHATASE 76 U/L (38-126); ANION GAP 6 (5-19); ASPARTATE AMINO TRANSFERASE 21 U/L (14-36); BILIRUBIN,DIRECT 0.1 mg/dL (0.0-0.4); BILIRUBIN,TOTAL 0.6 mg/dL (0.2-1.3); BLOOD UREA NITROGEN 13 mg/dL (7-20); CALCIUM 9.1 mg/dL (8.4-10.2); CARBON DIOXIDE 23 mmol/L (22-30); CHLORIDE 109 mmol/L (98-107); CREATINE KINASE 68 U/L (30-135); GLUCOSE 94 mg/dL (75-110); POTASSIUM 4.1 mmol/L (3.6-5.0)
--- NOTE | 2020-04-03 07:38 | EKG REPORT ---
SEVERITY:- NORMAL ECG - SINUS RHYTHM : Confirmed by: Chuckie Coffey 03-Apr-2020 07:36:56
--- NOTE | 2020-04-03 07:38 | RADIOLOGY REPORT (SQ) ---
EXAM DESCRIPTION: X-ray two view chest. CLINICAL HISTORY: 24 years Female, chest pain COMPARISON: 04/15/2019 TECHNIQUE: PA and Lateral views of the chest performed on 04/03/2020 at 7:09 AM FINDINGS: The lungs are well expanded and are clear. The costophrenic sulci are clear. There is no evidence of a pneumothorax. The cardiac silhouette is normal in size. The mediastinal contours are normal. No acute osseous abnormalities are identified. No focal soft tissue abnormalities are identified. IMPRESSION: No evidence of acute intrathoracic disease.
[2020-04-03 07:43] LABS: CREATINE KINASE MB < 0.22 ng/mL (<4.55); TROPONIN I < 0.012 ng/mL
--- NOTE | 2020-04-03 07:50 | ER Document Report ---
ED Cardiac - General Chief Complaint: Chest Pain Stated Complaint: CHEST PAIN Time Seen by Provider: 04/03/20 07:49 Mode of Arrival: Ambulatory Information source: Patient Notes: 04/03/20 06:24 - ED Nursing Note by SELENE PANDA Num: [id number] : 1995 Patient Age: 24 Pt ambulates with steady gait to PIT 1 with c/o intermittent chest pain x1 week. Reports pain is 5/5, sits in upper chest and radiates into back that feels like a pressure. Pt reports pain was the worst last night when lying down, but had mild relief when she took her bra off. Pt denies SOB, N/V, cough, fever/chills. Pt in NAD in triage, breaths even and unlabored Initialized on 04/03/20 06:24 - END OF NOTE TRAVEL OUTSIDE OF THE [place] IN LAST 30 DAYS: No - HPI Patient complains to provider of: Chest pain, Chest tightness. denies: Palpitations, Shortness of breath Use of: Amphetamines - Actually methylphenidate Concerta Was the onset of pain: Sudden Is the pain a: New problem Chest pain location: Substernal Quality of pain: Constant, Moderate, Pressure. 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 denies: CAD, COPD, CVA, DM, Hyperlipidemia, Hypertension, Malignancy, Thyroid Disfunction Patient has suicidal ideation: No Patient has homicidal ideation: No Pulmonary Medical History: Reports: Hx Asthma - as child Renal/ Medical History: Denies: Hx Peritoneal Dialysis Psychiatric Medical History: Reports: Hx Attention Deficit Hyperactivity Disorder - Immunizations Immunizations up to date: Yes Hx Diphtheria, Pertussis, Tetanus Vaccination: Yes Review of Systems - Review of Systems Constitutional: No symptoms reported, Recent illness - Patient had Covid and end of January with loss of smell and loss of taste. Her father works as a education liaison at a high school and got Covid at that time as well. EENT: No symptoms reported Cardiovascular: See HPI, Chest pain Respiratory: No symptoms reported Gastrointestinal: No symptoms reported Genitourinary: No symptoms reported Female Genitourinary: No symptoms reported Musculoskeletal: No symptoms reported Skin: No symptoms reported Hematologic/Lymphatic: No symptoms reported Neurological/Psychological: No symptoms reported Physical Exam - Vital signs Vitals: Temp Pulse Resp BP Pulse Ox 98.3 F 83 18 127/77 H 93 04/03/20 06:24 04/03/20 06:24 04/03/20 06:24 04/03/20 06:24 04/03/20 06:24 Interpretation: Normal - General General appearance: Appears well, Alert - HEENT Head: Normocephalic, Atraumatic Eyes: Normal Pupils: PERRL - Respiratory Respiratory status: No respiratory distress Chest status: Tender - Sternal chest pain on palpation range of motion Breath sounds: Normal Chest palpation: Normal - Cardiovascular Rhythm: Regular Heart sounds: Normal auscultation Murmur: No - Abdominal Inspection: Normal Distension: No distension Bowel sounds: Normal Tenderness: Nontender Organomegaly: No organomegaly - Rectal Hemorrhoids: Other - Deferred - Genitourinary Bimanuel exam: Other - Deferred - Back Back: Normal, Nontender - Extremities General upper extremity: Normal inspection, Nontender, Normal color, Normal ROM, Normal temperature General lower extremity: Normal inspection, Nontender, Normal color, Normal ROM, Normal temperature, Normal weight bearing. No: Crystal's sign - Neurological Neuro grossly intact: Yes Cognition: Normal Orientation: AAOx4 [place] Coma Scale Eye Opening: Spontaneous [place] Coma Scale Verbal: Oriented [place] Coma Scale Motor: Obeys Commands [place] Coma Scale Total: 15 Speech: Normal Motor strength normal: LUE, RUE, LLE, RLE Sensory: Normal - Psychological Associated symptoms: Normal affect, Normal mood - Skin Skin Temperature: Warm Skin Moisture: Dry Skin Color: Normal Course - Vital Signs Vital signs: Temp Pulse Resp BP Pulse Ox 98.3 F 83 18 127/77 H 93 04/03/20 06:24 04/03/20 06:24 04/03/20 06:24 04/03/20 06:24 04/03/20 06:24 - Laboratory Results Result Diagrams: 04/03/20 06:45 04/03/20 06:45 Laboratory Results Interpreted: 04/03/20 06:45 Chloride 109 H Critical Laboratory Results Reviewed: Yes Attending or Supervising Physician who Reviewed Labs: THOM WRIGHT JR - Radiology Results Critical Radiology Results Reviewed: Yes Attending or Supervising Physician who Reviewed Radiology: THOM WRIGHT JR - EKG Interpretation by Ca EKG shows normal: Sinus rhythm Rate: Normal Rhythm: NSR - Heart rate pulse [address] elevation no ST depression no T wave depression no T wave and elevation axis within normal limits Discharge - Discharge Clinical Impression: Costochondral chest pain Condition: Stable Disposition: HOME, SELF-CARE Additional Instructions: Covid symptoms may last up to 6 months. Return to ER as needed take medicines as directed encourage fluids talk to your doctor about your Concerta. This is methylphenidate which is a adrenergic medicine and may exacerbate chest pains. Off work as directed Prescriptions: Etodolac [Lodine] 400 mg PO DAILY #10 tablet Forms: Return to Work
== END 2020-04-03 08:30 | disposition home or self-care (01) ==
LOC: ER 06:18
DX: M94.0 Chondrocostal junction syndrome [Tietze] (principal); F17.210 Nicotine dependence, cigarettes, uncomplicated; Z86.16 Personal history of COVID-19
CPT/HCPCS: 36415; 71046; 80053; 82550; 82553; 84484; 85025; 93005; 93010; 99285